=== PATIENT | male | born 1945 | race Caucasian/White ===

== ENCOUNTER 2022-09-18 13:13 | Emergency (ER) | payer MEDICARE, OTHER, SELFPAY ==
[2022-09-18 13:15] VITALS: BP 163/110; PULSE 49; RESP 18; TEMP 35.7; O2SAT 97; BMI 23.2
--- NOTE | 2022-09-18 13:33 | CT_ITS ---
STUDY: CT BRAIN WITHOUT CONTRAST REASON FOR EXAM: Male, 77 years old. Headache after fall, patient on blood thinners RADIATION DOSAGE (If Supplied By Facility): CTDIvol = ( 47.06 ) mGy, DLP = ( 925.62 ) mGycm TECHNIQUE: Transaxial CT imaging of the brain was performed without administration of intravenous contrast material. Individualized dose optimization techniques were used for this CT. COMPARISON: No relevant priors. FINDINGS: Normal soft tissue structures. Normal calvarium. Normal size ventricles and extra-axial spaces for the patient''s age. Normal white matter tracts of the cerebral hemispheres. Normal basal ganglia and thalami. Normal brainstem. Normal cerebellum. There is no intracranial hemorrhage. There are no findings of an acute ischemic infarction. Normal visualized paranasal sinuses. CT/Brain/Head without Contrast IMPRESSION: Chronic involutional changes of the brain. No acute hemorrhage Electronically Signed: Vince Castaneda MD at 13:56 EST ,
--- NOTE | 2022-09-18 14:27 | EDS_ITS ---
HPI History of Present Illness Chief Complaint: Head Injury Detail of Chief Complaint: Head injury on Xarelto Informant: patient and spouse/S.O. Onset/Context/Timing Onset: Hours Mechanism/Context: Blunt Injury and Fall Location: Right forehead and right parietal region Current Severity: Gone Maximum Severity: Moderate Worsened by: Initial impact Relieved by: Nothing Associated Symptoms Associated Symptoms: Negative for Parasthesias, Weakness, Loss of function, Inability to ambulate, Loss of consciousness or Amnesia Narrative Narrative: Patient is a 77-year-old male on Xarelto for A. fib. His last dose of Xarelto was last evening. Denies headache, visual, ocular auditory symptoms. Nuys neck pain. Nuys paresthesia, anesthesia or motor aches. He denies cardiac respiratory symptoms. Last tetanus was 10+ years ago. He has no other complaints. Patient states he was loading wood into a barrel. Set up going down backwards he went forward. The wheels hit something which then propelled the wheelbarrow forward and patient followed. He hit his head on the rim of the wheelbarrow. Tetanus Immunization: >10 years Prior similar symptoms: No Recent Illness/Hospitalization: No PFSH PFSH Medical History (Updated 09/18/22 @ 14:[address] Jerome Espinosa MD) Atrial fibrillation Glaucoma Hx of fracture of leg Medical History no medical history no medical history (History of atrial fibrillation on Xarelto.) Allergy/AdvReac Type Severity Reaction Status Date / Time alfuzosin [From Uroxatral] Allergy Hives Verified 09/18/22 13:13 tamsulosin [From Flomax] Allergy Hives Verified 09/18/22 13:14 Surgical History (Updated 09/18/22 @ 14:28 by Zo Ybarra) Hx of thyroidectomy Social History (Updated 09/18/22 @ 14:[address] Jerome Espinosa MD) household members: spouse Smoking Status: Never smoker substance use type: does not use ROS ROS ED Constitutional Constitutional ED: Denies chills, fever(s), subjective, sweats or weight loss Eyes Eyes: Denies blurry vision or change in vision ENT ENT ED: Denies ear pain, rhinorrhea or sore throat Cardiovascular Cardiovascular: Denies chest pain, palpitations or racing heartbeat Respiratory/Chest Respiratory/Chest: Denies cough or dyspnea Gastrointestinal Gastrointestinal: Denies melena Musculoskeletal Musculoskeletal: Denies arthralgias, back pain or neck pain Integumentary Reports Abrasions; Denies rash Neurologic Neurologic: Denies headache(s), paresthesias or weakness Hematologic/Lymphatic Hematologic/Lymphatic: Reports easy bruising; Denies easy bleeding EXAM Physical Exam Const Vital Signs: 09/18/22 13:15 Temperature 96.2 F L Temperature Source Temporal Pulse Rate 49 L Respiratory Rate 18 Blood Pressure 163/110 H Blood Pressure Mean 127 Pulse Ox 97 Oxygen Delivery Method Room Air Positive well nourished and well developed Constitutional Narrative: Patient has an abrasion right side of forehead and right parietal area. There is subcutaneous hematomas noted. General Appearance ED: well developed and NAD HEENT Reports TM's clear HEENT Narrative: There is no septal deviation hematoma. There is no clinical findings of basilar skull fracture. trauma; Negative for tenderness Nose: Negative for septum abnormal Tympanic Membrane ED: Yes TM's clear Eyes PERRL and EOMs intact bilaterally Neck full ROM General: Negative for tenderness Chest Wall inspection of chest normal and palpation of chest normal Resp normal respiratory effort and clear to auscultation bilaterally Extremity normal to inspection and full ROM Neuro oriented x3, CN's II-XII intact bilaterally, moves all extremities, no focal motor deficits and no sensory deficits noted Sensorium / Orientation: alert Psych mental status grossly normal and thought process normal Skin no rashes or lesions noted, skin turgor normal and no jaundice Trauma: abrasion MDM MDM MDM Narrative Medical decision making narrative: The [place] CT head rule and [place] rule since patient is on anticoagulant and history of head trauma will need a CAT scan to rule out subdural, epidural, traumatic subarachnoid hemorrhage or intraparenchymal contusion. CT of the head was independently reviewed by me and there is no obvious evidence of trauma. Awaiting formal read by radiologist. Radiography Diagnostic Testing: Clinical Impression(s) from Imaging Studies Brain CT 09/18/22 13:33 IMPRESSION: Chronic involutional changes of the brain. No acute hemorrhage Electronically Signed: Vince Castaneda MD at 13:56 EST Reading Location ID and State: [facility] / [place] , Service support , Rhythm Strip Rhythm Strip: A-fib Rate: 52 Treatment and Re-Evaluation Narrative: Patient was informed to hold his Xarelto dose to night. He was discharged with appropriate home-going instructions. Discharge Plan Triage Chief Complaint: Head Injury ED Provider: Jerome Espinosa Dx/Rx/DC Orders Clinical Impression: CHI (closed head injury), Anticoagulant long-term use, Abrasion of scalp, initial encounter Referrals: Doctor,Your [Non-Staff] - As Needed Activity Restrictions/Additional Instructions: Hold your Xarelto dose this evening. You may resume tomorrow night Disposition Disposition: Home, Self Care
[2022-09-18] MEDS: Diphth,Pertuss(Acell),Tet Vac 0.5 ML Vial IM (15:15)
== END 2022-09-18 15:31 | disposition home or self-care (01) ==
LOC: ED 14:49
PROVIDERS: Emergency Provider Emergency Medicine; Visit Provider Emergency Medicine
DX: S00.01XA Abrasion of scalp, initial encounter (principal); I48.91 Unspecified atrial fibrillation; Z79.01 Long term (current) use of anticoagulants; W19.XXXA Unspecified fall, initial encounter; Z23 Encounter for immunization
CPT/HCPCS: 70450; 90715; 99282

== ENCOUNTER → 2024-06-15 | Outpatient (CLI) | payer MEDICARE, SELFPAY ==
--- NOTE | 2024-06-15 13:38 | CT_ITS ---
STUDY: CT BRAIN WITHOUT CONTRAST REASON FOR EXAM: Male, 79 years old. 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 Individualized dose optimization techniques were used for this CT. COMPARISON: Comparison is made with prior study dated September 18, 2022 FINDINGS: There is a 7.2 mm dense nodule overlying the medial aspect of the left frontal bone. This is within the overlying scalp. Normal calvarium. There is mild cerebral atrophy with widening of the extra-axial spaces and ventricular dilatation. There are areas of decreased attenuation within the white matter tracts of the supratentorial brain, consistent with microvascular disease changes. Normal basal ganglia and thalami. Normal brainstem. Normal cerebellum. There is no intracranial hemorrhage. There are no findings of an acute ischemic infarction. Normal visualized paranasal sinuses. CT/Brain/Head without Contrast IMPRESSION: Chronic involutional changes of the brain. 7.2 mm dense nodule within the scalp overlying the medial aspect of the left frontal bone. Electronically Signed: Mason Correa MD at 14:00 EDT ,
== END | disposition home or self-care (01) ==
PROVIDERS: Referring Provider Surgery Plastic and Reconstructive Surgery; Visit Provider Surgery Plastic and Reconstructive Surgery
DX: D16.4 Benign neoplasm of bones of skull and face (principal)
CPT/HCPCS: 70450

== ENCOUNTER 2024-07-05 09:12 | Day surgery (SDC) | payer MEDICARE, OTHER, SELFPAY ==
[2024-07-05] VITALS (8 sets, daily range): BP systolic 120–131; BP diastolic 79–92; PULSE 58–78; RESP 16–17; TEMP 36.2–36.7; O2SAT 95–100; BMI 22.8
--- NOTE | 2024-07-05 09:22 | PCM.PRE.AN2 ---
ASA Classification* ASA Classification ASA Classification: 3 Assessment & Plan Anesthesia* Anesthesia Assessment Anesthesia Assessment: Discussed sedation and/or anesthesia options, risks, benefits, and alternatives with patient/parents/legal guardian/POA. Questions invited. The patient/parents/legal guardian/POA seems to understand and agrees to proceed with anesthesia plan. Reviewed the physical assessment, medical history, allergy history and patient home medications list prior to surgery/procedure/anesthetic and documented any changes. Performed airway and anesthesia risk assessments. 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 When Was Last Pacemaker Check QUESTION #4 FULL TEXT: You/Your Family Experience fever (hyperthermia) with Anesthesia Last Oral Intake Last Oral intake: Last Oral Intake NPO since Meds taken in AM with sips of water? 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[employer] Female No 06/27/24 12:11 HX of Motion Sickness No 06/27/24 12:11 HX of N/V After Surgery No 06/27/24 12:11 Non-Smoker Yes 06/27/24 12:11 Duration of Surgery greater No 06/27/24 12:11 than 60 minutes Number of Risk Factors 1 06/27/24 12:11 PONV Score Low Risk 06/27/24 12:11 Height & Weight Height & Weight: Anesthesia: Height & Weight Height 5 ft 7 in 06/08/24 14:47 Respiratory Assessment Respiratory Assessment - supervisor [employer]: Respiratory Tract Infection Hx - supervisor [employer] Hx Respiratory Tract Infection No 06/27/24 12:11 STOP Sleep Apnea STOP Sleep Apnea - supervisor [employer]: STOP Sleep Apnea - supervisor [employer] Hx Hypertension No 06/27/24 12:11 Hx Sleep Apnea No 06/27/24 12:11 CPAP BIPAP Do you snore loudly (louder No 06/27/24 12:11 than talking or can be heard Do you often feel tired/ No 06/27/24 12:11 fatigued/ sleepy during daytime? Has anyone observed you stop No 06/27/24 12:11 breathing during sleep? STOP Results Negative 06/27/24 12:11 QUESTION #5 FULL TEXT : Do you snore loudly (louder than talking or can be heard through closed doors)? 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 Specify any problems Hx of Preganancy in last 3 N/A 06/27/24 12:11 Months Nurse Filling Out Transfusion VCHRISTIN 06/27/24 12:11 & Questions: Date: 06/27/24 06/27/24 12:11 Time: 12:13 06/27/24 12:11 Patient unable to answer at this time (ie. confused, unrespo /Reproduction History /Reproductive History - supervisor [employer]: /Reproductive Hx- supervisor [employer] Hx Now Gestational Age (in weeks): EDC: Hx Hx Para Hx Section SAB Active Medications Active Medications: Current Medications Generic Name Dose Route Start Last Admin Trade Name Freq PRN Reason Stop Dose Admin Cefazolin Sodium 2 gm/ N/A 20 mls @ 400 mls/hr 07/05/24 10:55 IV 07/05/24 10:57 PREOP ONE PFSH Medical History Wears glasses Cancer Alcohol use Thyroid disease Arthritis High cholesterol Easy bruising Excessive bleeding Non-smoker History of echocardiogram History of stress test Cardiology follow-up encounter History of thyroid cancer History of skin cancer Family history of prostate problems History of osteopenia History of heart disease History of hearing problem History of glaucoma Glaucoma Hx of fracture of leg Atrial fibrillation Home Medications ?Medication ?Instructions ?Recorded ?Last Taken ?Type atorvastatin 10 mg tablet 10 mg PO QDAY 06/08/24 Unknown History finasteride 5 mg tablet 5 mg PO QDAY 06/08/24 Unknown History latanoprost 0.005 % eye drops 1 drp ophthalmic (eye) QHS 06/08/24 Unknown History levothyroxine 112 mcg tablet 112 mcg PO MOTUWETHFR 06/08/24 Unknown History rivaroxaban 20 mg tablet (Xarelto) 20 mg PO QDAY 06/08/24 Unknown History calcium 600 mg (as 1 tab PO DAILY 06/27/24 Unknown History carbonate)-vitamin D3 5 mcg (200 unit) tablet (Calcium 600 + D(3)) coQ10 (ubiquinol) 100 mg capsule 100 mg PO DAILY 06/27/24 Unknown History levothyroxine 112 mcg capsule 224 mcg PO SA 06/27/24 Unknown History melatonin 3 mg capsule 3 mg PO QHS 06/27/24 Unknown History multivitamin (Daily Multi-Vitamin 1 tab PO DAILY 06/27/24 Unknown History tablet) sildenafil 100 mg tablet 100 mg PO PRN PRN ED 06/27/24 Unknown History Allergy/AdvReac Type Severity Reaction Status Date / Time alfuzosin (From Uroxatral) Allergy Hives Verified 06/29/24 08:18 tamsulosin (From Flomax) Allergy Hives Verified 06/29/24 08:18 Family History Brother Arthritis Hypertension Father Arthritis Heart disease Hypertension CVA (cerebral vascular accident) Mother Heart disease valve replacement Aunt Heart disease Son High cholesterol Surgical History History of knee replacement Hx of thyroidectomy Social History household members: spouse Smoking Status: Never smoker alcohol intake: current details: social substance use type: does not use additional social history: denies vaping, denies edibles, denies marijuana denies aspirin, denies ibuprofen denies history of blood clotting disorders Review of Systems (Anesthesia) ROS Narrative System reviewed and no additional complaints, except as documented.
[2024-07-05] MEDS: Lactated Ringers 1,000 ML 15 ML IV (09:44)
--- NOTE | 2024-07-05 10:55 | MASS_PTH ---
PATIENT: JORDAN SHETH LOC: [facility] [place] U#:[id number] AGE/SX: 79/M ROOM: RE07/05/[address]: Dr. Sarwat Shin MD : 1945 BED: DIS: 07/05/2024 SPEC #: [id number] RECD: 07/06/24 08:53 STATUS: YESENIA RODRIGUEZDustin #: [id number] MARIE: 07/05/24 10:[address]: Sarwat Shin DEPT: SURGICAL PATHOLOGY RECD BY: Mirta Peña Tissues: A - TISSUE SURGICALLY REMOVED B - TISSUE SURGICALLY REMOVED Procedures: Decalcification bone/plaque Surgery Specimen Level IV HEADER OPERATION: Excision masses x2 forehead PRE-OP DIAGNOSIS: Lipoma, osteoma TISSUE SUBMITTED: A- Fatty mass of forehead, B- Osteoma of forehead MICROSCOPIC DIAGNOSIS A. Soft tissue lesion of forehead, excision: Mature adipose tissue consistent with lipoma. B. Bony lesion of forehead, biopsy: Osseous tissue consistent with osteoma. AM. 07/10/2024 MICROSCOPIC DESCRIPTION Slides are reviewed. GROSS DESCRIPTION A. Received in fixative is one container labeled with the patient's name and designated Fatty mass of forehead. The specimen consists of a piece of yellow adipose tissue measuring 1.7 x 1.5 x 0.5cm. The specimen is bisected and reveal yellow adipose cut surfaces without area of hemorrhage, necrosis or cystic degeneration. The entire specimen is submitted in one cassette. B. Received in fixative is one container labeled with the patient's name and designated Osteoma of forehead. The specimen consists of a piece of bone measuring 1.0 x 0.8 x 0.3cm. The specimen is serially sectioned and submitted entirely in one cassette after decalcification. 07/06/2024 TC:5 CPT:27058q4,41774
--- NOTE | 2024-07-05 13:57 | HP.PCM.SX_ITS ---
HPI - General HPI Narrative JORDAN SHETH, is a 79 M who presents for forehead lesion removal. Current Encounter (DATE OF SURGERY H&P UPDATE): I saw and examined the patient this morning in pre-operative holding. We discussed risks and benefits of today's surgery and they would like to proceed. NO CHANGE in health history since last seen and evaluated. Ready to proceed with surgery. [facility], LAT[facility] Medical History Wears glasses Cancer Alcohol use Thyroid disease Arthritis High cholesterol Easy bruising Excessive bleeding Non-smoker History of echocardiogram History of stress test Cardiology follow-up encounter History of thyroid cancer History of skin cancer Family history of prostate problems History of osteopenia History of heart disease History of hearing problem History of glaucoma Glaucoma Hx of fracture of leg Atrial fibrillation Home Medications ?Medication ?Instructions ?Recorded ?Last Taken ?Type atorvastatin 10 mg tablet 10 mg PO QDAY 06/08/24 07/04/24 History finasteride 5 mg tablet 5 mg PO QDAY 06/08/24 07/04/24 History latanoprost 0.005 % eye drops 1 drp ophthalmic (eye) QHS 06/08/24 07/04/24 Hist ory levothyroxine 112 mcg tablet 112 mcg PO MOTUWETHFR 06/08/24 07/05/24 History rivaroxaban 20 mg tablet (Xarelto) 20 mg PO QDAY 06/08/24 07/02/24 History calcium 600 mg (as 1 tab PO DAILY 06/27/24 07/04/24 History carbonate)-vitamin D3 5 mcg (200 unit) tablet (Calcium 600 + D(3)) coQ10 (ubiquinol) 100 mg capsule 100 mg PO DAILY 06/27/24 07/04/24 History levothyroxine 112 mcg capsule 224 mcg PO SA 06/27/24 07/04/24 History melatonin 3 mg capsule 3 mg PO QHS 06/27/24 07/04/24 History multivitamin (Daily Multi-Vitamin 1 tab PO DAILY 06/27/24 07/04/24 History tablet) sildenafil 100 mg tablet 100 mg PO PRN PRN ED 06/27/24 Unknown History Allergy/AdvReac Type Severity Reaction Status Date / Time alfuzosin (From Uroxatral) Allergy Hives Verified 07/05/24 09:35 tamsulosin (From Flomax) Allergy Hives Verified 07/05/24 09:35 Family History Brother Arthritis Hypertension Father Arthritis Heart disease Hypertension CVA (cerebral vascular accident) Mother Heart disease valve replacement Aunt Heart disease Son High cholesterol Surgical History History of knee replacement Hx of thyroidectomy Social History household members: spouse Smoking Status: Never smoker alcohol intake: current details: social substance use type: does not use additional social history: denies vaping, denies edibles, denies marijuana denies aspirin, denies ibuprofen denies history of blood clotting disorders Vital Signs Vital Signs Vital Signs: 07/05/24 09:38 07/05/24 09:38 Temperature 97.6 F L Temperature Source Temporal Pulse Rate 58 L Respiratory Rate 17 Respiratory Pattern Normal Blood Pressure 131/92 H Blood Pressure Mean 105 Blood Pressure Source Monitor Blood Pressure Position Semi-Fowlers Blood Pressure Location Left Arm Pulse Ox 100 Oxygen Delivery Method Room Air Weight Weight: 149 lb 14.629 oz Body Mass Index (BMI) 22.8 Physical Exam Narrative Two forehead masses, marked in preop with patient. Assessment & Plan Assessment/Plan (1) Lipoma: (2) Osteoma: PLAN: Plan I talked the patient extensively about the risks of surgery, including bleeding, infection, damage to surrounding structures, surgical site dehiscence and wound formation, need for wound care, need for repeat operations, failure to obtain the desired result, DVT/PE, and the risks of anesthesia including . All of their questions were answered, and they agreed to proceed with surgery. Current Encounter (DATE OF SURGERY H&P UPDATE): I saw and examined the patient this morning in pre-operative holding. We discussed risks and benefits of today's surgery and they would like to proceed. NO CHANGE in health history since last seen and evaluated. Ready to proceed with surgery.
[2024-07-05] MEDS: Cefazolin 2 GM in Syringe IV (14:47)
[2024-07-05] MEDS: Lidocaine 1% /Epi 1:100 (20ml) 20 ML Vial (15:28)
--- NOTE | 2024-07-05 15:41 | PCM.POST.ANE ---
Anesthesia: Postop Eval I Current Vital Signs Temperature: 97.7 F Pulse Rate: 78 Blood Pressure: 123/81 Respiratory Rate: 16 Pulse Ox: 98 Oxygen Delivery Method: Room Air Assessment Airway patent: Yes Spontaneous unlabored respirations: Yes Mental status: Awake and Calm nausea: No Vomiting: No Anesthesia Complication: No Fluid Hydration Crystalloid volume administer (ml): 900 Total IV fluid infused: 900 Progress Note Anesthesia document: Postop Eval 1 completed: Yes
--- NOTE | 2024-07-05 16:00 | PCM.OP.BLANK ---
Operative Report Date of Procedure: 07/05/24 Surgery/Procedure Date: 05 July 2024 Incision/Procedure Start Time: 3:07 PM Incision Close/Procedure End Time: 3:27 PM (20 minutes) PATIENT: Devon Mims PRE-OPERATIVE DIAGNOSIS: Forehead osteoma and likely lipoma POST-OPERATIVE DIAGNOSIS: Same PROCEDURE PERFORMED: 1) Excision of subcutaneous mass, 2 x 2 cm, CPT: 78126 2) Excision of forehead osteoma, 1 x 1 cm, CPT 93448 3) Intermediate closure of wound, 4 cm, CPT 80228 OPERATIVE FINDINGS: Likely osteoma and likely lipoma INDICATIONS: Devon Mims is a 79-year-old male with 2 forehead masses who presents today for excision. We discussed risks of infection, bleeding, damage to surrounding structures, return of the mass and need for repeat surgeries, healing problems/dehiscence of the wound and need for wound care, and risks from anesthesia. He has been off his Xarelto for 3 days and will continue it tomorrow. OPERATIVE DETAILS: The patient was correctly notified in preoperative holding, and I marked them (the forehead masses were confirmed, the patient agreed with the site marking). They were taken back to the operating room where they were administered LMA general anesthesia and placed in the supine positioning. Care was taken to pad all bony prominences and protect the face and eyes. Once appropriate level of anesthesia was obtained, the site was prepped and draped in sterile fashion. A 15 blade scalpel was used to make a transverse direct incision in an existing righted between the masses, and dissection was carried out with Bovie electrocautery and tenotomy scissors around the inferior and superior forehead masses which were beneath the galea aponeurosis/frontalis. Dissection was carried out with tenotomy scissors around the masses and the lipoma was removed and measured 2 x 2 cm. The other mass was likely an osteoma and an osteotome was used to peel it off of the cranium and it measured 1 x 1 cm. Hemostasis was obtained with Bovie electrocautery. The wound was irrigated with copious amounts of normal saline. Both masses were sent separately to pathology. Attention was then turned to intermediate closure of the wound, which was 4 centimeters long. Deep sutures were placed with 3-0 Monocryl followed by running subcuticular 3-0 Monocryl. A local block was then performed with 20 cc of 1% lidocaine with epinephrine. Glue was placed and allowed to dry and then Steri-Strips were applied. The patient tolerated the procedure well and was awakened and taken the PACU in stable condition. ASA: 3 EBL: Minimal Anesthesia: General With local block IVF: 200 cc LR UOP: Unmeasured Specimens: 2 specimens sent separately to pathology Preoperative antibiotic was 2 g of Ancef POST-OPERATIVE PLAN: Follow-up in clinic in 1 week to discuss path results and check wound. Okay to restart Xarelto tomorrow
--- NOTE | 2024-07-06 01:25 | POSTOPAN2_ITS ---
Anesthesia Postop Eval I Sum Postop Eval Completion status Anesthesia document: Postop Eval 1 completed: Yes Anesthesia Postop Eval I Summary Anesthesia Postop Eval I Summary: Anesthesia Postop Eval I: Assessment Summary Airway patent Yes 07/05/24 15:42 BLANKET WINDER OPERATOR.SKOBY Spontaneous unlabored Yes 07/05/24 15:42 BLANKET WINDER OPERATOR.LEONORA respirations Mental status Awake,Calm 07/05/24 15:42 BLANKET WINDER OPERATOR.SKOBY nausea No 07/05/24 15:42 BLANKET WINDER OPERATOR.SKOBY Vomiting No 07/05/24 15:42 BLANKET WINDER OPERATOR.CHERYLOBY Anesthesia Postop Eval I: Fluid Summary Crystalloid volume administer 900 07/05/24 15:42 BLANKET WINDER OPERATOR.SKOBY (ml) Colloids volume administered ( ml) Blood Product volume administered (ml) Total IV fluid infused 900 07/05/24 15:42 BLANKET WINDER OPERATOR.CHERYLOBHerson Anesthesia Postop Eval I: Summary Notes Anesthesia Complication No 07/05/24 15:42 BLANKET WINDER OPERATOR.CHERYLOBHerson Anesthesia Complication Comment: Post-operative progress note Anesthesia: Postop Eval II Evaluation Mental status: Awake and Calm Pain Level: 1 nausea: No Vomiting: No Complications Anesthesia Complication: No
--- NOTE | 2024-07-06 01:25 | PCM.POSTANE2 ---
Anesthesia Postop Eval I Sum Postop Eval Completion status Anesthesia document: Postop Eval 1 completed: Yes Anesthesia Postop Eval I Summary Anesthesia Postop Eval I Summary: Anesthesia Postop Eval I: Assessment Summary Airway patent Yes 07/05/24 15:42 ELECTROMATIC TYPIST.SKOBY Spontaneous unlabored Yes 07/05/24 15:42 ELECTROMATIC TYPIST.LEONORA respirations Mental status Awake,Calm 07/05/24 15:42 ELECTROMATIC TYPIST.SKOBY nausea No 07/05/24 15:42 ELECTROMATIC TYPIST.SKOBY Vomiting No 07/05/24 15:42 ELECTROMATIC TYPIST.CHERYLOBY Anesthesia Postop Eval I: Fluid Summary Crystalloid volume administer 900 07/05/24 15:42 ELECTROMATIC TYPIST.SKOBY (ml) Colloids volume administered ( ml) Blood Product volume administered (ml) Total IV fluid infused 900 07/05/24 15:42 ELECTROMATIC TYPIST.CHERYLOBHerson Anesthesia Postop Eval I: Summary Notes Anesthesia Complication No 07/05/24 15:42 ELECTROMATIC TYPIST.CHERYLOBHerson Anesthesia Complication Comment: Post-operative progress note Anesthesia: Postop Eval II Evaluation Mental status: Awake and Calm Pain Level: 1 nausea: No Vomiting: No Complications Anesthesia Complication: No
== END 2024-07-05 17:03 | disposition home or self-care (01) ==
LOC: SDC 09:13 → AC 09:15
PROVIDERS: Referring Provider Surgery Plastic and Reconstructive Surgery; Visit Provider Surgery Plastic and Reconstructive Surgery
PROC: (CPT 21026; principal; 2024-07-05 10:40)
DX: D16.4 Benign neoplasm of bones of skull and face (principal); I48.91 Unspecified atrial fibrillation; D17.0 Benign lipomatous neoplasm of skin and subcutaneous tissue of head, face and neck; E07.9 Disorder of thyroid, unspecified; E78.00 Pure hypercholesterolemia, unspecified; Z79.01 Long term (current) use of anticoagulants; Z79.890 Hormone replacement therapy; Z79.899 Other long term (current) drug therapy; Z85.828 Personal history of other malignant neoplasm of skin
CPT/HCPCS: 21026; 21012; 00190; 88305; 88311; J7120; J2405

== ENCOUNTER 2025-06-11 13:34 | Emergency (ER) | payer MEDICARE, OTHER, SELFPAY ==
[2025-06-11 13:35] VITALS: BP 153/107; PULSE 79; RESP 16; TEMP 36.6; O2SAT 100; BMI 22.8
== END 2025-06-11 13:52 | disposition left against medical advice (07) ==
LOC: ED 13:57
DX: Z53.21 Procedure and treatment not carried out due to patient leaving prior to being seen by health care provider (principal)

== ENCOUNTER → 2025-06-11 | Outpatient (CLI) | payer MEDICARE, OTHER, SELFPAY ==
--- NOTE | 2025-06-11 14:14 | RAD_ITS ---
PROCEDURE: ANKLE MIN 3 VIEWS 06/11/2025 REASON FOR EXAM: Fell off ladder with injury. PAIN. TECHNIQUE: Procedure Code: RADANK Modality: DX Procedure: ANKLE MIN 3 VIEWS Laterality: Left. COMPARISON: None. RAD/Ankle min 3 Views IMPRESSION: A mildly displaced/depressed intra-articular FRACTURE of the anterior aspect of the distal left tibia is seen, best noted on the lateral view. A mildly displaced comminuted FRACTURE of the left lateral malleolus is seen. Otherwise, satisfactory alignment is noted. On lateral imaging, normal contour of the Achilles tendon is noted. Reading Location: -[id number]
== END | disposition home or self-care (01) ==
LOC: MTRAD 14:14
PROVIDERS: Referring Provider Physician Assistant; Visit Provider Physician Assistant
DX: M25.572 Pain in left ankle and joints of left foot (principal)
CPT/HCPCS: 73610